=== PATIENT | male | born 1980 | race African-American/Black ===

== ENCOUNTER 2018-03-20 11:55 | Emergency (ER) | payer MEDICAID, OTHER ==
[~2018-03-20] VITALS: Ht 190.5 cm; Wt 122.7 kg
[~2018-03-20 11:55] MED LIST: BENZ1TAB10 PO; MIRT15 PO; QUET200T PO; QUET200XR PO; TRAZ150 PO
[2018-03-20] MEDS ORDERED: RISP4 PO (12:04)
[2018-03-20 12:14] VITALS: BP 138/77
[2018-03-20] MEDS ORDERED: IBUPROFEN 800 MG TABLET PO ONE (12:30)
== END 2018-03-20 14:16 | disposition home or self-care (01) ==
LOC: EMS 11:56
DX: K02.9 Dental caries, unspecified (principal); F20.9 Schizophrenia, unspecified; F17.210 Nicotine dependence, cigarettes, uncomplicated; Z79.899 Other long term (current) drug therapy
CPT/HCPCS: 99283

== ENCOUNTER 2018-03-26 16:15 | Emergency (ER) | payer OTHER ==
[~2018-03-26] VITALS: Ht 190.5 cm; Wt 124.5 kg
[~2018-03-26 16:15] MED LIST changes: -BENZ1TAB10 PO; +RISP4 PO
[2018-03-26] MEDS ORDERED: TRAM50TA4 PO (16:30)
[2018-03-26] MEDS ORDERED: QUET200T PO (16:30)
[2018-03-26] MEDS ORDERED: RISP3 PO (18:09)
[2018-03-26] MEDS ORDERED: QUET300T2 PO (18:09)
[2018-03-26] MEDS ORDERED: KETOROLAC TROMETHAMINE 60 MG/2 ML VIAL IM ONE (18:15)
[2018-03-26] MEDS ORDERED: BUPIVACAINE HCL/PF 0.5% 10 ML VIAL SQ ONE (18:30)
[2018-03-26] MEDS ORDERED: BUPIVACAINE HCL/PF 0.5% 30 ML VIAL SQ ONE (18:45)
[2018-03-26 19:18] VITALS: BP 133/79
== END 2018-03-26 19:19 | disposition home or self-care (01) ==
LOC: EMS 16:16
DX: K02.9 Dental caries, unspecified (principal); F25.9 Schizoaffective disorder, unspecified; F17.210 Nicotine dependence, cigarettes, uncomplicated; Z76.0 Encounter for issue of repeat prescription
CPT/HCPCS: 64400; 96372; 99284; 99406; J1885; J3490

== ENCOUNTER 2019-07-10 21:42 | Emergency (ER) | payer OTHER ==
[~2019-07-10] VITALS: Ht 190.5 cm; Wt 109.1 kg
[~2019-07-10 21:42] MED LIST changes: +QUET200T5 PO; -QUET200XR PO; +QUET300T2 PO; +RISP3 PO; -RISP4 PO; +TRAM50TA4 PO
[2019-07-10 22:08] VITALS: BP 134/79
== END 2019-07-10 22:55 | disposition left against medical advice (07) ==
LOC: EMS 21:43
DX: R45.851 Suicidal ideations (principal); R44.0 Auditory hallucinations; F20.9 Schizophrenia, unspecified; F17.210 Nicotine dependence, cigarettes, uncomplicated
CPT/HCPCS: 99406

== ENCOUNTER 2019-12-13 01:31 | Inpatient (IN) | payer MEDICAID ==
[~2019-12-13] VITALS: Ht 190.5 cm; Wt 104.0 kg
[~2019-12-13 01:31] MED LIST changes: +MIRT-92 PO; -MIRT15 PO; -QUET300T2 PO; -TRAM50TA4 PO
[2019-12-13] MEDS ORDERED: LORazepam 1 MG TABLET PO PRN (04:45)
[2019-12-13] MEDS ORDERED: HALOPERIDOL 5 MG TABLET PO PRN (04:45)
[2019-12-13] MEDS ORDERED: ZOLPIDEM TARTRATE 10 MG TABLET PO PRN (04:45)
[2019-12-13 06:15] VITALS: BP 130/83
[2019-12-13] MEDS ORDERED: INFLUENZA VIRUS VACCINE QVS 2019-20 (3YR+)/PF 60 MCG/0.5 ML SYRINGE IM ONE (06:15)
[2019-12-13 08:18] LABS: APPEARANCE,URINE CLEAR (CLEAR); BILIRUBIN,URINE NEGATIVE (NEGATIVE); GLUCOSE, URINE (UA) NEGATIVE (NEGATIVE); KETONES,URINE NEGATIVE (NEGATIVE); LEUKOCYTE ESTERASE ,URINE NEGATIVE (NEGATIVE); NITRATE,URINE NEGATIVE (NEGATIVE); OCCULT BLOOD,URINE NEGATIVE (NEGATIVE); PH,URINE 5.5 (5.0-8.0); PROTEIN,URINE NEGATIVE (NEGATIVE); UROBILINOGEN,URINE 0.2 mg/dL (<=1.0)
[2019-12-13] MEDS: FLUoxetine HCL 20 MG CAPSULE PO SCH (10:51)
[2019-12-13 13:15] VITALS: BP 122/66
[2019-12-13 16:13] VITALS: BP 129/72
[2019-12-13] MEDS: QUEtiapine FUMARATE 200 MG TABLET PO SCH (20:12)
[2019-12-13] MEDS ORDERED: NICOTINE 14 MG/24 HOUR PATCH TD PRN (20:15)
[2019-12-13] MEDS ORDERED: DOCUSATE SODIUM 100 MG CAPSULE PO PRN (20:15)
[2019-12-13] MEDS ORDERED: MAG HYDROX/AL HYDROX/SIMETH ES 30 ML SUSPENSION UDCUP PO PRN (20:15)
[2019-12-13] MEDS ORDERED: IBUPROFEN 400 MG TABLET PO PRN (20:15)
[2019-12-13] MEDS ORDERED: ALBUTEROL SULFATE HFA 90 MCG/PUFF 8 GM INHALER IH PRN (20:15)
[2019-12-13] MEDS ORDERED: GuaiFENesin/D-METHORPHAN [SUGAR-FREE] 200-20MG/10 ML SYRUP UDCUP PO PRN (20:15)
[2019-12-13] MEDS ORDERED: MAGNESIUM HYDROXIDE SUSPENSION 30 ML UDCUP PO PRN (20:15)
[2019-12-13] MEDS ORDERED: LOPERAMIDE HCL 2 MG CAPSULE PO PRN (20:15)
[2019-12-13] MEDS ORDERED: PETROLATUM,WHITE 28 GM JELLY TP PRN (20:15)
[2019-12-13] MEDS ORDERED: ONDANSETRON HCL 4 MG TABLET PO PRN (20:15)
[2019-12-13] MEDS ORDERED: CloNIDine HCL 0.1 MG TABLET PO PRN (20:15)
[2019-12-13] MEDS ORDERED: ACETAMINOPHEN 325 MG TABLET PO PRN (20:15)
[2019-12-14 01:22] VITALS: BP 134/65
[2019-12-14] MEDS: FLUoxetine HCL 20 MG CAPSULE PO SCH (08:34)
[2019-12-14 08:47] VITALS: BP 123/75
[2019-12-14 16:08] VITALS: BP 101/60
[2019-12-14] MEDS: QUEtiapine FUMARATE 200 MG TABLET PO SCH (20:27)
[2019-12-15 06:22] VITALS: BP 107/79
[2019-12-15] MEDS: FLUoxetine HCL 20 MG CAPSULE PO SCH (08:34)
[2019-12-15 09:10] VITALS: BP 124/69
[2019-12-15] MEDS ORDERED: FLUO-191 PO (11:43)
== END 2019-12-15 12:15 | disposition home or self-care (01) | DRG 750 ==
LOC: B3A 04:30
PROVIDERS: ADMIT Psychiatry & Neurology Psychiatry; ATTEND Psychiatry & Neurology Psychiatry
DX: F25.0 Schizoaffective disorder, bipolar type (principal); R45.851 Suicidal ideations; Z59.0 Homelessness; E66.9 Obesity, unspecified; F17.200 Nicotine dependence, unspecified, uncomplicated; F19.90 Other psychoactive substance use, unspecified, uncomplicated; F41.9 Anxiety disorder, unspecified; K21.9 Gastro-esophageal reflux disease without esophagitis; K59.00 Constipation, unspecified; Z91.5 Personal history of self-harm; Z68.28 Body mass index [BMI] 28.0-28.9, adult
CPT/HCPCS: 87081

== ENCOUNTER 2021-05-13 01:57 | Inpatient (IN) | payer MEDICAID, OTHER ==
[~2021-05-13] VITALS: Ht 195.6 cm; Wt 88.9 kg
[~2021-05-13 01:57] MED LIST changes: +MIRT-89 PO; -MIRT-92 PO; +NALT50TA PO; +PALI117D IM; -QUET200T PO; -RISP3 PO; -TRAZ150 PO
[2021-05-13 04:26] LABS: COVID AG,FIA SOURCE NASOPHARYNGEAL
[2021-05-13 04:32] LABS: BASOPHILS % (AUTO) 0.6 % (0.0-2.0); EOSINOPHILS % (AUTO) 2.5 % (1.0-6.0); HEMATOCRIT 40.1 % (41-53); LYMPHOCYTES # (AUTO) 1.7 K/uL (1.0-4.8); LYMPHOCYTES % (AUTO) 24.5 % (22.0-44.0); MEAN CORPUSCULAR HEMOGLOBIN 28.1 pg (26.0-34.0); MEAN CORPUSCULAR HGB CONC 32.4 G/dL (31.0-37.0); MEAN CORPUSCULAR VOLUME 87 fL (80-100); MONOCYTES # (AUTO) 0.7 K/uL (0.1-1.0); MONOCYTES % (AUTO) 9.1 % (2.0-9.0); NEUTROPHILS # (AUTO) 4.5 K/uL (1.8-7.7); NEUTROPHILS % (AUTO) 63.3 % (40.0-70.0); PLATELET COUNT (AUTO) 248 K/uL (150-450); RED BLOOD CELL COUNT(AUTO) 4.61 MIL/uL (4.50-5.90); RED CELL DISTRIBUTION WIDTH 14.3 % (11.5-14.5)
[2021-05-13 04:43] LABS: ANION GAP 6 mmol/L (8-16); CALCIUM, TOTAL 8.5 mg/dL (8.8-10.5); CARBON DIOXIDE 27 mmol/L (22-29); CHLORIDE 105 mmol/L (98-107); CREATININE 0.85 mg/dL (0.60-1.30); GLOMERULAR FILTR. RATE CALC > 60 mL/min (>60); GLUCOSE,RANDOM 68 mg/dL (70-110); SODIUM SERUM 138 mmol/L (136-145); UREA NITROGEN, BLOOD 8 mg/dL (7-18)
[2021-05-13 04:48] LABS: ALANINE AMINOTRANSFERASE 27 U/L (12-78); ALBUMIN 3.1 g/dL (3.4-5.0); ALKALINE PHOSPHATASE 62 U/L (46-116); ASPARTATE AMINOTRANSFERASE 22 U/L (15-37); BILIRUBIN,TOTAL 0.2 mg/dL (0.1-1.0); TOTAL PROTEIN, SERUM 6.4 g/dL (6.4-8.2)
[2021-05-13 06:13] LABS: GLUCOSE,POINT OF CARE 114 MG/DL (70-110)
[2021-05-13 06:34] VITALS: BP 117/60
[2021-05-13 09:16] VITALS: BP 129/64
[2021-05-13] MEDS: LORazepam 2 MG TABLET PO PRN (13:05)
[2021-05-13] MEDS ORDERED: BACITRACIN 28 GM OINTMENT TP PRN (20:15)
[2021-05-13] MEDS ORDERED: LOPERAMIDE HCL 2 MG CAPSULE PO PRN (20:15)
[2021-05-13] MEDS ORDERED: OMEPRAZOLE 20 MG CAPSULE PO PRN (20:15)
[2021-05-13] MEDS ORDERED: PETROLATUM,WHITE 28 GM JELLY TP PRN (20:15)
[2021-05-13] MEDS ORDERED: ALBUTEROL SULFATE HFA 90 MCG/PUFF 8 GM INHALER IH PRN (20:15)
[2021-05-13] MEDS ORDERED: MAG HYDROX/AL HYDROX/SIMETH ES 30 ML SUSPENSION UDCUP PO PRN (20:15)
[2021-05-13] MEDS ORDERED: CloNIDine HCL 0.1 MG TABLET PO PRN (20:15)
[2021-05-13] MEDS ORDERED: ACETAMINOPHEN 325 MG TABLET PO PRN (20:15)
[2021-05-13] MEDS ORDERED: ONDANSETRON HCL 4 MG TABLET PO PRN (20:15)
[2021-05-13] MEDS ORDERED: MAGNESIUM HYDROXIDE SUSPENSION 30 ML UDCUP PO PRN (20:15)
[2021-05-13] MEDS ORDERED: DOCUSATE SODIUM 100 MG CAPSULE PO PRN (20:15)
[2021-05-13] MEDS ORDERED: IBUPROFEN 600 MG TABLET PO PRN (20:15)
[2021-05-13] MEDS ORDERED: BENZOCAINE/MENTHOL LOZENGE PO PRN (20:15)
[2021-05-13] MEDS: PALIPERIDONE 6 MG ER TABLET PO SCH (20:16)
[2021-05-14] MEDS: ZOLPIDEM TARTRATE 10 MG TABLET PO PRN (01:21)
[2021-05-14 03:41] VITALS: BP 154/88
[2021-05-14 09:05] LABS: CHOL/HDL RATIO 2.5 (4.2-7.3)
[2021-05-14] MEDS: LORazepam 2 MG TABLET PO PRN (14:02)
[2021-05-14] MEDS: HALOPERIDOL 5 MG TABLET PO PRN (14:02)
[2021-05-14 16:04] VITALS: BP 147/79
[2021-05-14] MEDS: PALIPERIDONE 6 MG ER TABLET PO SCH (20:19)
[2021-05-15 08:00] VITALS: BP 134/70
[2021-05-15 16:50] VITALS: BP 140/88
[2021-05-15] MEDS: LORazepam 2 MG TABLET PO PRN (18:04)
[2021-05-15] MEDS: HALOPERIDOL 5 MG TABLET PO PRN (18:04)
[2021-05-15] MEDS: PALIPERIDONE 6 MG ER TABLET PO SCH (21:27)
[2021-05-16 00:40] VITALS: BP 140/93
[2021-05-16] MEDS: ZOLPIDEM TARTRATE 10 MG TABLET PO PRN (00:43)
[2021-05-16] MEDS: HALOPERIDOL 5 MG TABLET PO PRN ×2 (08:30→17:39)
[2021-05-16] MEDS: LORazepam 2 MG TABLET PO PRN ×2 (08:30→17:39)
[2021-05-16 09:01] VITALS: BP 110/61
[2021-05-16 16:00] VITALS: BP 107/74
[2021-05-16] MEDS: PALIPERIDONE 6 MG ER TABLET PO SCH (21:41)
[2021-05-17] MEDS: ZOLPIDEM TARTRATE 10 MG TABLET PO PRN ×2 (00:22→20:29)
[2021-05-17 00:24] VITALS: BP 109/69
[2021-05-17 08:00] VITALS: BP 131/81
[2021-05-17 16:00] VITALS: BP 105/69
[2021-05-17] MEDS: PALIPERIDONE 6 MG ER TABLET PO SCH (20:27)
[2021-05-18] MEDS: LORazepam 2 MG TABLET PO PRN ×2 (01:14→09:20)
[2021-05-18 03:31] VITALS: BP 125/81
[2021-05-18 08:00] VITALS: BP 116/77
[2021-05-18] MEDS: HALOPERIDOL 5 MG TABLET PO PRN (09:20)
[2021-05-18 16:09] VITALS: BP 106/69
[2021-05-18] MEDS: PALIPERIDONE 6 MG ER TABLET PO SCH (20:11)
[2021-05-19] MEDS: LORazepam 2 MG TABLET PO PRN (03:55)
[2021-05-19 04:45] VITALS: BP 122/78
[2021-05-19 08:47] VITALS: BP 139/81
[2021-05-19] MEDS ORDERED: PALI234D IM (16:12)
[2021-05-19] MEDS ORDERED: PALIPERIDONE PALMITATE 234 MG/1.5 ML SYRINGE IM SCH (17:00)
== END 2021-05-19 17:40 | disposition home or self-care (01) | DRG 750 ==
LOC: EMS 01:58 → 3EI 05:00
PROVIDERS: ADMIT Psychiatry & Neurology Psychiatry; ATTEND Psychiatry & Neurology Psychiatry
DX: F25.9 Schizoaffective disorder, unspecified (principal); R45.851 Suicidal ideations; E44.1 Mild protein-calorie malnutrition; F41.9 Anxiety disorder, unspecified; Z20.822 Contact with and (suspected) exposure to COVID-19; G47.00 Insomnia, unspecified; K59.00 Constipation, unspecified; J44.9 Chronic obstructive pulmonary disease, unspecified; K21.9 Gastro-esophageal reflux disease without esophagitis; Z87.891 Personal history of nicotine dependence; Z68.23 Body mass index [BMI] 23.0-23.9, adult
CPT/HCPCS: 80053; 80061; 82962; 85025; 99285; G0480

== ENCOUNTER 2023-07-10 11:43 | Emergency (ER) | payer MEDICAID, OTHER ==
[~2023-07-10] VITALS: Ht 190.5 cm; Wt 100.0 kg
[~2023-07-10 11:43] MED LIST changes: -NALT50TA PO; -PALI117D IM; +PALI234D IM
[2023-07-10] MEDS ORDERED: QUET400T13 PO (11:52)
[2023-07-10 11:53] VITALS: TEMP 97.9
[2023-07-10 14:08] VITALS: BP 126/80; PULSE 90; RESP 18
== END 2023-07-10 14:12 | disposition home or self-care (01) ==
LOC: EMS 11:43
DX: M79.642 Pain in left hand (principal); F25.9 Schizoaffective disorder, unspecified; F17.210 Nicotine dependence, cigarettes, uncomplicated; Z79.899 Other long term (current) drug therapy
CPT/HCPCS: 99283